=== PATIENT | female | born 1975 | race Two or more races ===

== ENCOUNTER 2022-03-03 11:26 | Emergency (ER) | payer OTHER ==
[2022-03-03 12:13] VITALS: BP 155/72; PULSE 84; RESP 17; TEMP 98.1; BMI 30.2
[2022-03-03 15:39] LABS: BASO % 1.3 % (0-2.0); EOS % 7.6 % (0-4.5); HEMATOCRIT 30.4 % (32.4-45.2); MCH 20.8 pg (25.7-33.7); MCHC 29.8 g/dl (32.0-36.0); MEAN CELL VOLUME 69.8 fl (80-96); MONO % 5.1 % (3.8-10.2); PLATELET COUNT 204 10^3/uL (134-434); RBC 4.35 M/mm3 (3.60-5.2); RDW 35.1 % (11.6-15.6); WHITE BLOOD COUNT 5.8 K/mm3 (4.0-10.0)
[2022-03-03 15:43] LABS: PROTHROMBIN TIME (PATIENT) 11.5 SEC (9.7-13.0)
[2022-03-03 15:44] LABS: EPI CELLS 6 /uL (0-25.1); HYALINE CASTS 7 /uL (0-3.1); URINE APPEARANCE TURBID; URINE BILIRUBIN 1+ (NEGATIVE); URINE COLOR RED; URINE GLUCOSE (UA) NEGATIVE (NEGATIVE); URINE KETONE NEGATIVE (NEGATIVE); URINE LEUK ESTERASE 2+ (NEGATIVE); URINE NITRITE POSITIVE (NEGATIVE); URINE PROTEIN 3+ (NEGATIVE); URINE RBC 46679 /uL (0-23.9); URINE UROBILINOGEN 0.2 mg/dL (0.2-1.0); URINE WBC 37 /uL (0-25.8)
[2022-03-03 15:58] LABS: BLOOD UREA NITROGEN 12.2 mg/dL (7-18); CALCIUM 9.4 mg/dL (8.5-10.1)
[2022-03-03 16:01] LABS: CREATININE 0.5 mg/dL (0.55-1.3)
[2022-03-03 16:03] LABS: BILIRUBIN,TOTAL 0.4 mg/dL (0.2-1); TOT PROT 7.4 g/dl (6.4-8.2)
[2022-03-03 16:51] LABS: ANISOCYTOSIS 3+; MACROCYTOSIS 0; TARGET CELLS 1+; TEAR DROP CELLS 1+
== END 2022-03-03 18:47 | disposition home or self-care (01) ==
LOC: JERFT 11:26 → JER 11:26 → JERFT 18:47
DX: N93.9 Abnormal uterine and vaginal bleeding, unspecified (principal)
CPT/HCPCS: 36415; 76830-TC; 80053; 81003; 85025; 85610; 86850; 86900; 86901; 87077; 87086; 99284-25

== ENCOUNTER 2023-03-27 16:14 | Day surgery (SDC) | payer OTHER ==
[2023-03-27] MEDS ORDERED: ONDANSETRON *ODT* 4 MG TABLET SL ONE (18:01)
[2023-03-27] MEDS ORDERED: ONDANSETRON 4 MG/2 ML VIAL ONE (18:11)
[2023-03-27] MEDS ORDERED: ONDANSETRON 4 MG/2 ML VIAL IVPUSH ONE (18:11)
[2023-03-27 18:41] LABS: BASO % 0.6 % (0-2.0); EOS % 0.5 % (0-4.5); HEMATOCRIT 24.7 % (32.4-45.2); HEMOGLOBIN 7.1 GM/dL (10.7-15.3); LYMPH % 21.1 % (8-40); MCHC 28.8 g/dl (32.0-36.0); MEAN CELL VOLUME 60.2 fl (80-96); MEAN PLT VOLUME 8.7 fl (7.5-11.1); NEUT % 72.8 % (42.8-82.8); PLATELET COUNT 234 10^3/uL (134-434); RBC 4.11 M/mm3 (3.60-5.2); RDW 22.3 % (11.6-15.6); WHITE BLOOD COUNT 5.8 K/mm3 (4.0-10.0)
[2023-03-27 18:44] LABS: MCH 17.4 pg (25.7-33.7)
[2023-03-27 19:09] LABS: POTASSIUM 4.2 mmol/L (3.5-5.1)
[2023-03-27 19:11] LABS: ALBUMIN 3.9 g/dl (3.4-5.0); BLOOD UREA NITROGEN 13.7 mg/dL (7-18)
[2023-03-27 19:14] LABS: CREATININE 0.5 mg/dL (0.55-1.3); PHOSPHOROUS 3.6 mg/dL (2.5-4.9)
[2023-03-27 19:16] LABS: BILIRUBIN,TOTAL 0.7 mg/dL (0.2-1); TOT PROT 7.3 g/dl (6.4-8.2)
[2023-03-27 20:02] LABS: ANISOCYTOSIS 2+
[2023-03-27] MEDS ORDERED: CEFOXITIN SODIUM 2 GM in DEXTROSE 5%-WATER - 100 ML IVPB ONE (20:55)
[2023-03-27 22:19] LABS: INR 1.14 (0.83-1.09); PROTHROMBIN TIME (PATIENT) 13.2 SEC (9.7-13.0)
[2023-03-27] MEDS ORDERED: ONDANSETRON 4 MG/2 ML VIAL IVPUSH PRN (23:27)
[2023-03-27] MEDS ORDERED: SODIUM CHLORIDE 1,000 ML IV SCH (23:30)
[2023-03-28] MEDS ORDERED: FLU VACCINE (FLULAVAL) PF 60 MCG/0.5 ML SYRINGE 2023-2024 IM ONE ×2 (04:04→10:00)
[2023-03-28 04:05] VITALS: BMI 24.1
[2023-03-28] MEDS: CEFOXITIN SODIUM 1 GM in DEXTROSE 5%-WATER 100 ML IVPB SCH ×2 (10:26→12:17)
[2023-03-28] MEDS ORDERED: BUPIVACAINE HCL/PF 0.25% (2.5MG/ML) 10 ML VIAL ONE (10:45)
[2023-03-28] MEDS ORDERED: CEFOXITIN SODIUM 2 GM IVPB ONE (10:46)
[2023-03-28] MEDS ORDERED: HEPARIN NA (PORCINE) 5,000 UNITS/ML 1ML VIAL ONE (10:46)
[2023-03-28] MEDS ORDERED: ACETAMINOPHEN INJECTION 100 ML IVPB ONE (10:53)
[2023-03-28 11:25] LABS: HEMATOCRIT 22.8 % (32.4-45.2); MCHC 28.4 g/dl (32.0-36.0); MEAN CELL VOLUME 61.9 fl (80-96); MEAN PLT VOLUME 8.5 fl (7.5-11.1); PLATELET COUNT 205 10^3/uL (134-434); RBC 3.68 M/mm3 (3.60-5.2); RDW 23.3 % (11.6-15.6); RETICULOCYTES 5.03 % (0.5-1.5); WHITE BLOOD COUNT 3.3 K/mm3 (4.0-10.0)
[2023-03-28 11:28] LABS: MCH 17.6 pg (25.7-33.7)
[2023-03-28 11:30] LABS: HEMOGLOBIN 6.5 GM/dL (10.7-15.3)
[2023-03-28 11:32] LABS: POTASSIUM 3.7 mmol/L (3.5-5.1)
[2023-03-28 11:33] LABS: ALBUMIN 3.4 g/dl (3.4-5.0); CALCIUM 8.1 mg/dL (8.5-10.1)
[2023-03-28 11:35] LABS: MAGNESIUM 1.9 mg/dL (1.8-2.4)
[2023-03-28 11:36] LABS: BILIRUBIN,DIRECT 0.2 mg/dL (0.0-0.2)
[2023-03-28 11:37] LABS: PHOSPHOROUS 3.2 mg/dL (2.5-4.9)
[2023-03-28 11:39] LABS: TOT PROT 6.3 g/dl (6.4-8.2)
[2023-03-28 11:43] LABS: BILIRUBIN,TOTAL 0.7 mg/dL (0.2-1)
[2023-03-28] MEDS: SODIUM CHLORIDE 1,000 ML IV SCH (13:00)
[2023-03-28] MEDS ORDERED: BUPIVACAINE HCL/PF 0.25% (2.5MG/ML) 10 ML VIAL IJ ONE (13:44)
[2023-03-28] MEDS ORDERED: LACTATED RINGERS SOLUTION 1,000 ML IV SCH (14:45)
[2023-03-28] MEDS ORDERED: ACETAMINOPHEN 500 MG TABLET (FP) PO PRN (14:58)
[2023-03-28] MEDS ORDERED: ONDANSETRON 4 MG/2 ML VIAL IVPUSH PRN (14:58)
[2023-03-28] MEDS ORDERED: oxyCODONE HCL 5 MG TABLET PO PRN ×2 (14:58)
[2023-03-28 18:18] VITALS: RESP 18
[2023-03-28 18:40] LABS: BASO % 0.3 % (0-2.0); EOS % 0.1 % (0-4.5); HEMATOCRIT 34.5 % (32.4-45.2); HEMOGLOBIN 10.6 GM/dL (10.7-15.3); LYMPH % 4.4 % (8-40); MCH 20.7 pg (25.7-33.7); MCHC 30.8 g/dl (32.0-36.0); MEAN CELL VOLUME 67.1 fl (80-96); MEAN PLT VOLUME 8.9 fl (7.5-11.1); MONO % 0.8 % (3.8-10.2); NEUT % 94.4 % (42.8-82.8); PLATELET COUNT 217 10^3/uL (134-434); RBC 5.13 M/mm3 (3.60-5.2); RDW 27.9 % (11.6-15.6); WHITE BLOOD COUNT 11.5 K/mm3 (4.0-10.0)
[2023-03-28 19:20] LABS: ANISOCYTOSIS 3+; MACROCYTOSIS 0; OVALOCYTE 1+; TARGET CELLS 1+
[2023-03-28] MEDS ORDERED: IRON SUCROSE INJECTION 200 MG in SODIUM CHLORIDE 90 ML IVPB ONE (20:00)
[2023-03-29] MEDS ORDERED: CEFOXITIN SODIUM 1 GM in DEXTROSE 5%-WATER 100 ML IVPB SCH (02:00)
[2023-03-29] MEDS ORDERED: FLU VACCINE (FLULAVAL) PF 60 MCG/0.5 ML SYRINGE 2023-2024 IM ONE ×3 (10:00→15:00)
[2023-03-29 11:19] LABS: POTASSIUM 3.9 mmol/L (3.5-5.1)
[2023-03-29 11:34] LABS: CALCIUM 8.7 mg/dL (8.5-10.1)
[2023-03-29 11:35] LABS: ALBUMIN 3.1 g/dl (3.4-5.0); BLOOD UREA NITROGEN 11.1 mg/dL (7-18); CREATININE 0.5 mg/dL (0.55-1.3)
[2023-03-29 11:37] LABS: BILIRUBIN,TOTAL 0.6 mg/dL (0.2-1)
[2023-03-29 11:53] LABS: BASO % 0.3 % (0-2.0); EOS % 0.1 % (0-4.5); HEMATOCRIT 31.2 % (32.4-45.2); HEMOGLOBIN 9.6 GM/dL (10.7-15.3); MCH 20.6 pg (25.7-33.7); MCHC 30.7 g/dl (32.0-36.0); MEAN CELL VOLUME 67.1 fl (80-96); MEAN PLT VOLUME 8.3 fl (7.5-11.1); NEUT % 66.6 % (42.8-82.8); PLATELET COUNT 175 10^3/uL (134-434); RBC 4.65 M/mm3 (3.60-5.2); WHITE BLOOD COUNT 5.8 K/mm3 (4.0-10.0)
[2023-03-29 14:32] VITALS: BP 125/61; PULSE 71; TEMP 97.9
[2023-03-29] MEDS: SODIUM CHLORIDE 1,000 ML IV SCH (15:54)
== END 2023-03-29 15:55 | disposition home or self-care (01) ==
LOC: JER 16:14 → JERBED 21:07 → UNDOADMIN 21:07 → J6S 03-28 03:04 → JERBED 03-28 03:04 → JASUSAT 03-29 10:26 → J6S 03-29 10:46 → JASUSAT 03-29 15:55
PROVIDERS: ATTEND Internal Medicine
PROC: 0FT44ZZ Resection of Gallbladder, Percutaneous Endoscopic Approach (ICD-10-PCS; principal; 2023-03-29)
DX: K81.0 Acute cholecystitis (principal)
CPT/HCPCS: 36415; 36430; 76705-TC; 80053; 82248; 82607; 82728; 83540; 83550; 83690; 83735; 84100; 84443; 84466; 84703; 85025; 85027; 85045; 85610; 86850; 86900; 86901; 86922; 90686; 93005; 93010; 93306-TC; 94010; 94760; 99285-25; J1644; J1756; P9058